=== PATIENT | female | born 1995 | race African-American/Black ===

== ENCOUNTER 2023-09-03 19:37 | Outpatient (CLI) | payer OTHER ==
[~2023-09-03] VITALS: Ht 180.3 cm; Wt 95.7 kg
[2023-09-03 20:15] VITALS: BP 125/70; PULSE 92; TEMP 97.6
--- NOTE | 2023-09-03 20:15 | NUR ---
A G1 L0 pt of Dr Evans, arriving with complaints of ctx that have slowly increased in frequency through out the day. Pt reports they started at 0100 today and were 10-15 minutes apart, were sporadic and not consistent. She reports into the afternoon and evening they became 5-10 minutes apart and increased in strength. Denies LOF or VB, does report good movement. Pt placed on the monitors and plan of care discussed. SVE 2-/-2. Pt given the opportunity to stand at the side of the bed with for support.
[2023-09-03] MEDS ORDERED: LR 1,000 ML IV PRN (20:30)
--- NOTE | 2023-09-03 20:45 | NUR ---
Pt on birthing ball, US readjusted but due to maternal position tracing is interrupted. RN at bedside attempting to obtain heart rate without success. Mother changes position from sitting on the birthing ball to standing with spouses support. Pt is allowed to be intermittently monitored at this time.
--- NOTE | 2023-09-03 21:00 | NUR ---
Pt continues to be on the birthing ball for comfort. Spouse at bedside for support. RN continues to attempt to maintain heart tones but is having difficulty due to pt changing positions so frequently.
--- NOTE | 2023-09-03 21:00 | NUR ---
Pt continues to change position from birthing ball to standing with spouse support. RN continues to attempt to obtain heart rate without success. RN at bedside monitoring mother and status.
[2023-09-03 21:15] VITALS: PULSE 95
--- NOTE | 2023-09-03 21:30 | NUR ---
Pt SVE /-2 at 2119. Discussed that dilation can occur at about a centimeter over an hour or two at this time. Pt and spouse verbalized understanding.
--- NOTE | 2023-09-03 21:45 | NUR ---
Pt back to standing next to the bed for comfort. Attempts made to obtain heart tones are difficult due to pt continually needing to move and change position.
[2023-09-03 22:15] VITALS: PULSE 90; TEMP 97.9
== END 2023-09-03 22:30 | disposition home or self-care (01) ==
LOC: LDRO 19:37 → LDR 19:55 → LDRO 22:30
DX: O26.893 Other specified pregnancy related conditions, third trimester (principal); E75.5 Other lipid storage disorders; Z3A.40 40 weeks gestation of pregnancy
CPT/HCPCS: OP

== ENCOUNTER 2023-09-04 00:37 | Inpatient (IN) | payer OTHER ==
[2023-09-04] VITALS (15 sets, daily range): BP systolic 78–195; BP diastolic 42–75; PULSE 59–127; TEMP 97.4–98.7
--- NOTE | 2023-09-04 00:45 | NUR ---
0045 G1L0 40.1 WEEK GEST TO LR4 IN [facility]. VERY UNCOMFORTABLE AND SCREAMING WITH CONTRACTIONS. TAKES SEVERAL TRIES TO GET PT TO LAY IN BED. SVE [place]. SROM AT 2340 LAST DANG WITH CL FLUID PER . EFM ON. 56 DR BURGESS NOTIFIED TO COME TO HOSPITAL. IV STARTED. FEELING URGE TO PUSH.
--- NOTE | 2023-09-04 01:00 | NUR ---
0100 UNCONTROLLABLE PUSHING WITH CONTRACTIONS. PREPARING FOR DELIVERY 0107 DR BURGESS HERE. READIED FOR DELIVERY 0113 DELIVER VIABLE FEMALE OVER 2ND DEGREE LAC. IV CONTS TO INFUSE.
[2023-09-04 01:38] LABS: BASO % 0.4 % (0.0-2.0); EOS % 0.5 % (0.0-4.0); GRAN # 5.1 K/mm3 (1.4-6.5); GRAN % 59.9 % (42.2-75.2); HEMATOCRIT 40.1 % (37.0-47.0); HEMOGLOBIN 13.1 g/dl (12.5-16.0); LYMPH # 2.6 K/mm3 (1.2-3.4); MEAN CELL VOLUME 93 fl (80.0-100.0); MEAN CORPUSCULAR HEMOGLOBIN 30 pg (27-31); MEAN CORPUSCULAR HGB CONC 33 g/dl (33.0-37.0); MEAN PLATELET VOLUME 10.8 fl (7.4-10.4); MONO # 0.8 K/mm3 (0.1-0.6); MONO % 8.8 % (1.7-9.3); PLATELET COUNT 240 K/mm3 (130-400); RED BLOOD COUNT 4.33 M/mm3 (4.10-5.30); REDCELL DISTRIBUTION WIDTH-CV 12.3 % (11.5-14.5)
[2023-09-05 01:30] VITALS: BP 118/70; PULSE 74
[2023-09-05 06:50] VITALS: BP 118/71; PULSE 62; TEMP 97.9
--- NOTE | 2023-09-05 09:04 | NUR ---
Initial visit; Parents thanked [employer] for offering congratulations and God's blessings for the of their daughter. Box Truck Driver thanked family for choosing [facility].
--- NOTE | 2023-09-05 11:40 | NUR ---
THIS RN TO PATIENT BEDSIDE TO EXPLAIN THAT DELIVERY CONSENT WAS NOT SIGNED. PATIENT VERBALIZES UNDERSTANDING AND THIS RN EXPLAINS CONSENT FORM. PATIENT SIGNS CONSENT.
[2023-09-05 16:27] VITALS: BP 112/70; PULSE 59; TEMP 98.2
[2023-09-05 20:00] VITALS: BP 111/67; PULSE 68; TEMP 98
[2023-09-06 09:20] VITALS: BP 98/67; PULSE 73; TEMP 98.2
--- NOTE | 2023-09-06 09:45 | NUR ---
Follow-up visit; Parents appeared glad to see Insurance Counselor who stopped in again to wish them well and share in their happiness for the of their baby girl.
[2023-09-06] MEDS ORDERED: MOTRIN 800800 MG/TAB PO (09:51)
== END 2023-09-06 15:30 | disposition home or self-care (01) | DRG 806 ==
LOC: LDRO 00:37 → LDR 00:55 → OB 00:55
PROVIDERS: Obstetrics & Gynecology; ADMIT Obstetrics & Gynecology
PROC: 10E0XZZ Delivery of Products of Conception, External Approach (ICD-10-PCS; principal; 2023-09-04)
PROC: 0KQM0ZZ Repair Perineum Muscle, Open Approach (ICD-10-PCS; 2023-09-04)
DX: O48.0 Post-term pregnancy (principal); O98.12 Syphilis complicating childbirth; Z37.0 Single live birth; O70.1 Second degree perineal laceration during delivery; A53.9 Syphilis, unspecified; Z3A.40 40 weeks gestation of pregnancy
CPT/HCPCS: J2590; J7120